=== PATIENT | female | born 1960 | race Caucasian/White ===

== ENCOUNTER → 2023-05-21 15:37 | Outpatient (REF) | payer BC, SELFPAY | LOC: RAD 15:37 | PROVIDERS: ATTENDING PHYSICIAN Internal Medicine Cardiovascular Disease; FAMILY PHYSICIAN Internal Medicine Geriatric Medicine | DX: R79.9 Abnormal finding of blood chemistry, unspecified (principal); R79.89 Other specified abnormal findings of blood chemistry | CPT/HCPCS: 76770 ==

== ENCOUNTER → 2023-05-30 08:25 | Outpatient (REF) | payer BC, SELFPAY ==
[2023-05-30 09:13] LABS: % Basophils 1.5 % (0-2); % Eosinophils 7.7 % (0-6); % Immature Granulocytes 0.2 % (0-0.5); % Lymphocytes 30.2 % (20.5-51.1); % Monocytes 8.9 % (1.7-9.3); % Neutrophils 51.5 % (42.2-75.2); Absolute Basophils 0.1 10^3/uL (0-0.2); Absolute Eosinophils 0.3 10^3/uL (0-0.7); Absolute Lymphocytes 1.2 10^3/uL (1.2-3.4); Absolute Monocytes 0.4 10^3/uL (0.1-0.6); Absolute Neutrophils 2.1 10^3/uL (1.4-6.5); Hematocrit 33.8 % (37.0-47.0); Hemoglobin 11.1 g/dL (12.0-16.0); Mean Corp Hgb Conc. 32.8 g/dL (33.0-37.0); Mean Corpuscular Volume 88.3 fL (81.0-99.0); Mean Platelet Volume 9.4 fL (7.4-10.4); Nucleated Red Blood Cells % 0 %; Platelet Count 353 10^3/uL (130-400); Red Blood Cell Count 3.83 10^6/uL (4.20-5.40); Red Cell Dist. Width 13.9 % (11.5-14.5)
[2023-05-30 10:25] LABS: Blood Urea Nitrogen 21 mg/dl (7-17); Calcium 9.8 mg/dl (8.4-10.2); Carbon Dioxide 27 mmol/L (22-30); Chloride 103 mmol/L (98-107); Glucose 91 mg/dl (70-99); Potassium 5.2 mmol/L (3.5-5.1); Sodium 139 mmol/L (135-145); eGFR > 60.00
== END ==
LOC: REG 08:25
PROVIDERS: Internal Medicine; ATTENDING PHYSICIAN Nurse Practitioner Primary Care
DX: N28.9 Disorder of kidney and ureter, unspecified (principal); D64.9 Anemia, unspecified
CPT/HCPCS: 36415; 80048; 85025

== ENCOUNTER → 2023-06-18 06:38 | Day surgery (SDC) | payer BC, SELFPAY | LOC: GI 06:38 | PROVIDERS: ATTENDING PHYSICIAN Internal Medicine; FAMILY PHYSICIAN Nurse Practitioner Primary Care | DX: Z12.11 Encounter for screening for malignant neoplasm of colon (principal); D50.0 Iron deficiency anemia secondary to blood loss (chronic); D12.2 Benign neoplasm of ascending colon; K63.5 Polyp of colon; K29.50 Unspecified chronic gastritis without bleeding; K31.89 Other diseases of stomach and duodenum; K44.9 Diaphragmatic hernia without obstruction or gangrene; K21.00 Gastro-esophageal reflux disease with esophagitis, without bleeding; R19.5 Other fecal abnormalities; Z80.0 Family history of malignant neoplasm of digestive organs; Z86.010 Personal history of colon polyps | CPT/HCPCS: 45385; 45380; 43239; 88305; 88342 ==

== ENCOUNTER 2023-08-06 11:54 | Emergency (ER) | payer BC, SELFPAY ==
[2023-08-06 11:57] VITALS: BP 130/86
--- NOTE | 2023-08-06 12:22 | EDRN ---
Patient stated that she tripped and fell over her dog backwards hitting her head on the asphalt. No LOC. Denies any thinners and dizziness. +headache.
--- NOTE | 2023-08-06 12:48 | ED.GENMED ---
History of Present Illness
General
Chief Complaint: Fall
Source: patient
Exam Limitations: none
Time Seen by Provider: 08/06/23 12:28
Nursing documentation reviewed up to this point in time: agreed with
Travel History
Have you had any contact with someone who has COVID-19?: No
Do you have any symptoms of coronavirus? Fever > 100 degrees, chills, cough, shortness of breath, sore throat, loss of taste or smell, muscle aches, or headache?: No
History of Present Illness
History of Present Illness:
62-year-old female presenting to the emergency department today with concerns of a fall today over her dog hitting the back of her head did not lose consciousness does have ongoing posterior head pain denies neck pain denies numbness weakness chest
pain shortness of breath or additional concerns.
Review of Systems
Review of Systems
Allergies reviewed?: Yes
All Other Systems: ROS reviewed and negative except as documented in HPI and ROS
Phy Exam
Physical Exam
Physical Exam:
GENERAL: Alert , in no apparent distress
EYE: pupils equal and reactive
NECK: Supple, no significant adenopathy.
ENT: o/p clr, mmm.
CARDIAC: Regular rate and rhythm .
LUNGS: Clear breath sounds bilaterally, no acute respiratory distress, no wheezes/rales/rhonchi
ABDOMEN: Soft, without focal tenderness, no r/g, no cvat
NEUROLOGICAL: Alert and oriented, no focal neuro deficits
SKIN: Warm and dry, skin intact.
MUSCULOSKELETAL: No edema, well perfused.
PSYCH: Normal and appropriate interaction.
Course
Orders/Labs/Results
Orders:
Orders
08/06/23 12:34
CT Head W/o Iv Contrast Urgent
Comment:
Reason For Exam: fall hit back of [facility]
Vital Signs
Initial and Last Documented VS:
Initial Vital Signs
Temp Pulse Resp BP Pulse Ox
98.1 F 76 18 130/86 97
08/06/23 11:57 08/06/23 11:57 08/06/23 11:57 08/06/23 11:57 08/06/23 11:57
Last Documented Vital Signs
Temp Pulse Resp BP Pulse Ox
98.1 F 76 18 130/86 97
08/06/23 11:57 08/06/23 11:57 08/06/23 11:57 08/06/23 11:57 08/06/23 11:57
MDM/Problems Addressed
MDM/Problems Addressed:
62-year-old female presenting to the emergency department today with concerns of posterior head pain after a trip and fall over her dog earlier today denies additional injuries no loss of consciousness not on blood thinners. Here she has a
reassuring neurologic evaluation. No breaks in the skin. CT scan performed without emergent findings does have findings of chronic sinusitis she is aware of this. Otherwise stable for discharge return precautions given.
*Critical Care Note
Total Time (30-74mins, 75-104mins- exclusive of procedures): Not Applicable
ED Attending Note
-
Portions of this chart may have been created with voice recognition software.� Occasional wrong word or��sound alike� substitutions may have occurred due to the inherent limitations of voice recognition software.
Discharge Plan
Departure
Patient Disposition: Home (Routine Discharge)
Date of Disposition: 08/06/23
Time of Disposition: 14:12
Patient with high blood pressure during this ER visit?: No
Condition: Good
Covid-19: Not Applicable
Discharge Problem:
Fall, Minor head injury
Instructions: Concussion, Adult (DC)
Prescriptions:
No Action
multivitamin 1 EACH tablet
1 ea PO DAILY
aspirin [Karla Chewable Aspirin] 81 MG tablet,chewable
81 mg PO DAILY
lisinopril 40 MG tablet
40 mg PO DAILY
bupropion HCl 150 MG tablet extended release 24 hr
150 mg PO DAILY
duloxetine 30 MG capsule,delayed release(DR/EC)
30 mg PO DAILY
duloxetine 60 MG capsule,delayed release(DR/EC)
60 mg PO DAILY
Referrals:
Christoph Gonzales MD [Family Provider] -
Activity Restrictions/Additional Instructions:
You came to the emergency department today after falling and hitting her head. You had a CT scan without emergent finding but did show some chronic sinusitis. Please follow closely. Otherwise rest over the next few days as symptoms will hopefully
improve. Return to the emergency department for any worsening, new or concerning symptoms.
Interventions
Interventions:
*Risk Screen - Suicide Last Done: 08/06/23 11:57
*General Assessment Last Done: 08/06/23 11:57
*Neglect/Abuse Screening Last Done: 08/06/23 11:57
*ED COVID-19 Vaccine History Last Done: 08/06/23 11:57
ED-Musculoskeletal Assessment Last Done: 08/06/23 12:20
ED- Neurological Assessment Last Done: 08/06/23 12:20
ED-Skin Assessment Last Done: 08/06/23 12:20
Discharge Date and Time
Print Language: DOMINICAN
--- NOTE | 2023-08-06 14:18 | EDRN ---
Reviewed discharge instructions with patient. Verbalized understanding. Ambulated with steady gait to the lobby.
[2023-08-06 14:20] VITALS: BP 126/89
== END 2023-08-06 14:21 | disposition home or self-care (01) ==
LOC: EMR 11:54
PROVIDERS: EMERGENCY PHYSICIAN Emergency Medicine; FAMILY PHYSICIAN Internal Medicine Geriatric Medicine
DX: S09.90XA Unspecified injury of head, initial encounter (principal); W01.0XXA Fall on same level from slipping, tripping and stumbling without subsequent striking against object, initial encounter
CPT/HCPCS: 99283; 70450

== ENCOUNTER → 2023-08-08 17:01 | Outpatient (REF) | payer BC, SELFPAY ==
[2023-08-08 18:15] LABS: Blood Urea Nitrogen 23 mg/dl (7-17); Calcium 10.2 mg/dl (8.4-10.2); Carbon Dioxide 26 mmol/L (22-30); Chloride 102 mmol/L (98-107); Glucose 81 mg/dl (70-99); Potassium 3.9 mmol/L (3.5-5.1); Sodium 136 mmol/L (135-145); eGFR > 60.00
== END ==
LOC: REG 17:01
PROVIDERS: ATTENDING PHYSICIAN Nurse Practitioner Primary Care
DX: E87.5 Hyperkalemia (principal)
CPT/HCPCS: 36415; 80048

== ENCOUNTER → 2023-09-25 06:21 | Day surgery (SDC) | payer BC, SELFPAY | LOC: GI 06:21 | PROVIDERS: ATTENDING PHYSICIAN Internal Medicine | DX: K29.70 Gastritis, unspecified, without bleeding (principal); K21.01 Gastro-esophageal reflux disease with esophagitis, with bleeding; K44.9 Diaphragmatic hernia without obstruction or gangrene; K31.7 Polyp of stomach and duodenum; K31.89 Other diseases of stomach and duodenum; D50.9 Iron deficiency anemia, unspecified; R12 Heartburn | CPT/HCPCS: 43239; 88305 ==

== ENCOUNTER → 2023-10-04 14:15 | Outpatient (REF) | payer BC, SELFPAY ==
[2023-10-04 15:00] LABS: % Basophils 1.8 % (0-2); % Eosinophils 12.7 % (0-6); % Immature Granulocytes 0.2 % (0-0.5); % Lymphocytes 33.9 % (20.5-51.1); % Monocytes 7.6 % (1.7-9.3); % Neutrophils 43.8 % (42.2-75.2); Absolute Basophils 0.1 10^3/uL (0-0.2); Absolute Eosinophils 0.6 10^3/uL (0-0.7); Absolute Lymphocytes 1.5 10^3/uL (1.2-3.4); Absolute Monocytes 0.3 10^3/uL (0.1-0.6); Hematocrit 38.8 % (37.0-47.0); Hemoglobin 12.6 g/dL (12.0-16.0); Mean Corp Hgb Conc. 32.5 g/dL (33.0-37.0); Mean Corpuscular Hgb 27.8 pg (27.0-31.0); Mean Corpuscular Volume 85.5 fL (81.0-99.0); Mean Platelet Volume 9.3 fL (7.4-10.4); Nucleated Red Blood Cells % 0 %; Platelet Count 308 10^3/uL (130-400); Red Blood Cell Count 4.54 10^6/uL (4.20-5.40); Red Cell Dist. Width 14.8 % (11.5-14.5); White Blood Cell Count 4.5 10^3/uL (4.8-10.8)
[2023-10-04 15:30] LABS: ALT (SGPT) 21 U/L (0-35); AST (SGOT) 27 U/L (14-36); Albumin 4.7 g/dl (3.5-5.0); Alkaline Phosphatase 121 U/L (38-126); Blood Urea Nitrogen 17 mg/dl (7-17); Calcium 10.3 mg/dl (8.4-10.2); Carbon Dioxide 27 mmol/L (22-30); Chloride 103 mmol/L (98-107); Glucose 90 mg/dl (70-99); HDL Cholesterol 79 mg/dl; LDL Cholesterol, Calculated 112 mg/dl; Potassium 4.6 mmol/L (3.5-5.1); Sodium 139 mmol/L (135-145); Total Cholesterol 218 mg/dl (50-199); Total Protein 7.5 g/dl (6.3-8.2); Triglyceride 136 mg/dl (10-149); Very Low Density Lipoprotein 27 mg/dl (0-30); eGFR > 60.00
[2023-10-04 15:43] LABS: Vitamin D, 25-OH*** 21.9 ng/mL (30-80)
[2023-10-04 15:57] LABS: TSH Reflex To Free T4 1.65 uIU/ml (0.47-4.68)
[2023-10-04 16:16] LABS: Vitamin B12 707 pg/ml (239-931)
[2023-10-05 10:18] LABS: Glycohemoglobin (HgbA1c) 5.8 % (4.0-5.6)
== END ==
LOC: REG 14:15
PROVIDERS: ATTENDING PHYSICIAN Internal Medicine; FAMILY PHYSICIAN Nurse Practitioner Primary Care
DX: D64.9 Anemia, unspecified (principal); R73.03 Prediabetes; E78.2 Mixed hyperlipidemia; E03.8 Other specified hypothyroidism; E55.9 Vitamin D deficiency, unspecified
CPT/HCPCS: 36415; 80053; 80061; 82306; 82607; 82728; 83036; 84443; 85025

== ENCOUNTER → 2023-12-11 15:38 | Outpatient (REF) | payer BC, SELFPAY | LOC: WDC 15:38 | PROVIDERS: ATTENDING PHYSICIAN Obstetrics & Gynecology; FAMILY PHYSICIAN Internal Medicine Geriatric Medicine | DX: Z12.31 Encounter for screening mammogram for malignant neoplasm of breast (principal) | CPT/HCPCS: 77063; 77067 ==

== ENCOUNTER → 2023-12-28 09:04 | Outpatient (REF) | payer BC, SELFPAY | LOC: HWRCS 09:04 | PROVIDERS: ATTENDING PHYSICIAN Internal Medicine Cardiovascular Disease; FAMILY PHYSICIAN Nurse Practitioner Primary Care | DX: I42.0 Dilated cardiomyopathy (principal) | CPT/HCPCS: 93306 ==

== ENCOUNTER → 2024-02-19 10:05 | Outpatient (REF) | payer BC, SELFPAY ==
[2024-02-19 11:03] LABS: % Basophils 1.4 % (0-2); % Eosinophils 13.6 % (0-6); % Immature Granulocytes 0.2 % (0-0.5); % Lymphocytes 33.7 % (20.5-51.1); % Monocytes 9.1 % (1.7-9.3); Absolute Basophils 0.1 10^3/uL (0-0.2); Absolute Eosinophils 0.6 10^3/uL (0-0.7); Absolute Lymphocytes 1.4 10^3/uL (1.2-3.4); Absolute Monocytes 0.4 10^3/uL (0.1-0.6); Absolute Neutrophils 1.8 10^3/uL (1.4-6.5); Hematocrit 36.1 % (37.0-47.0); Hemoglobin 12.4 g/dL (12.0-16.0); Mean Corp Hgb Conc. 34.3 g/dL (33.0-37.0); Mean Corpuscular Hgb 30.2 pg (27.0-31.0); Mean Corpuscular Volume 87.8 fL (81.0-99.0); Mean Platelet Volume 9.7 fL (7.4-10.4); Nucleated Red Blood Cells % 0 %; Platelet Count 286 10^3/uL (130-400); Red Blood Cell Count 4.11 10^6/uL (4.20-5.40); Red Cell Dist. Width 14.2 % (11.5-14.5); White Blood Cell Count 4.3 10^3/uL (4.8-10.8)
[2024-02-19 11:18] LABS: Glycohemoglobin (HgbA1c) 5.6 % (4.0-5.6)
[2024-02-19 11:37] LABS: Vitamin D, 25-OH*** 41.5 ng/mL (30-80)
[2024-02-19 12:23] LABS: ALT (SGPT) 28 U/L (0-35); AST (SGOT) 30 U/L (14-36); Albumin 4.5 g/dl (3.5-5.0); Alkaline Phosphatase 91 U/L (38-126); Blood Urea Nitrogen 18 mg/dl (7-17); Calcium 9.6 mg/dl (8.4-10.2); Carbon Dioxide 26 mmol/L (22-30); Chloride 104 mmol/L (98-107); Glucose 97 mg/dl (70-99); HDL Cholesterol 65 mg/dl; LDL Cholesterol, Calculated 125 mg/dl; Potassium 4.4 mmol/L (3.5-5.1); Sodium 140 mmol/L (135-145); Total Bilirubin 0.5 mg/dl (0.2-1.3); Total Cholesterol 219 mg/dl (50-199); Total Protein 6.9 g/dl (6.3-8.2); Triglyceride 147 mg/dl (10-149); Very Low Density Lipoprotein 29 mg/dl (0-30); eGFR > 60.00
== END ==
LOC: REG 10:05
PROVIDERS: ATTENDING PHYSICIAN Nurse Practitioner Primary Care; FAMILY PHYSICIAN Internal Medicine Geriatric Medicine
DX: I10 Essential (primary) hypertension (principal); E78.2 Mixed hyperlipidemia; R73.03 Prediabetes; D64.9 Anemia, unspecified; E55.9 Vitamin D deficiency, unspecified
CPT/HCPCS: 36415; 80053; 80061; 82306; 83036; 85025

== ENCOUNTER → 2024-07-09 10:05 | Outpatient (REF) | payer BC, SELFPAY ==
[2024-07-09 11:01] LABS: % Basophils 1.7 % (0-2); % Eosinophils 13.2 % (0-6); % Immature Granulocytes 0.2 % (0-0.5); % Lymphocytes 25.4 % (20.5-51.1); % Monocytes 8.5 % (1.7-9.3); Absolute Basophils 0.1 10^3/uL (0-0.2); Absolute Eosinophils 0.6 10^3/uL (0-0.7); Absolute Lymphocytes 1.2 10^3/uL (1.2-3.4); Absolute Monocytes 0.4 10^3/uL (0.1-0.6); Absolute Neutrophils 2.5 10^3/uL (1.4-6.5); Hematocrit 39.8 % (37.0-47.0); Mean Corp Hgb Conc. 32.7 g/dL (33.0-37.0); Mean Corpuscular Hgb 28.4 pg (27.0-31.0); Mean Corpuscular Volume 86.9 fL (81.0-99.0); Mean Platelet Volume 9.5 fL (7.4-10.4); Nucleated Red Blood Cells % 0 %; Platelet Count 319 10^3/uL (130-400); Red Blood Cell Count 4.58 10^6/uL (4.20-5.40); Red Cell Dist. Width 14.5 % (11.5-14.5); White Blood Cell Count 4.8 10^3/uL (4.8-10.8)
[2024-07-09 11:51] LABS: ALT (SGPT) 38 U/L (0-35); AST (SGOT) 30 U/L (14-36); Albumin 4.3 g/dl (3.5-5.0); Alkaline Phosphatase 109 U/L (38-126); Blood Urea Nitrogen 22 mg/dl (7-17); Calcium 9.8 mg/dl (8.4-10.2); Carbon Dioxide 29 mmol/L (22-30); Chloride 105 mmol/L (98-107); Glucose 104 mg/dl (70-99); HDL Cholesterol 69 mg/dl; LDL Cholesterol, Calculated 127 mg/dl; Potassium 4.3 mmol/L (3.5-5.1); Sodium 143 mmol/L (135-145); Total Bilirubin 0.7 mg/dl (0.2-1.3); Total Cholesterol 228 mg/dl (50-199); Total Protein 7.1 g/dl (6.3-8.2); Triglyceride 162 mg/dl (10-149); Very Low Density Lipoprotein 32 mg/dl (0-30); eGFR > 60.00
[2024-07-09 13:07] LABS: Glycohemoglobin (HgbA1c) 5.5 % (4.0-5.6)
== END ==
LOC: REG 10:05
PROVIDERS: ATTENDING PHYSICIAN Nurse Practitioner Primary Care; FAMILY PHYSICIAN Internal Medicine Geriatric Medicine
DX: E78.2 Mixed hyperlipidemia (principal); D64.9 Anemia, unspecified; R73.03 Prediabetes
CPT/HCPCS: 36415; 80053; 80061; 83036; 85025

== ENCOUNTER → 2024-12-31 10:10 | Outpatient (REF) | payer BC, SELFPAY | LOC: RCS 10:10 | PROVIDERS: ATTENDING PHYSICIAN Nurse Practitioner; FAMILY PHYSICIAN Nurse Practitioner Primary Care | DX: I44.7 Left bundle-branch block, unspecified (principal); I42.0 Dilated cardiomyopathy | CPT/HCPCS: 93306 ==

== ENCOUNTER → 2025-01-09 13:36 | Outpatient (REF) | payer BC, SELFPAY | LOC: WDC 13:36 | PROVIDERS: ATTENDING PHYSICIAN Obstetrics & Gynecology; FAMILY PHYSICIAN Nurse Practitioner Primary Care | DX: Z12.31 Encounter for screening mammogram for malignant neoplasm of breast (principal) | CPT/HCPCS: 77063; 77067 ==